=== PATIENT | male | born 1955 | race Caucasian/White ===

== ENCOUNTER 2016-10-21 05:09 | Emergency (ER) | payer SELFPAY ==
[~2016-10-21] VITALS: Ht 167.6 cm; Wt 75.9 kg
[~2016-10-21 05:09] MED LIST: GLUCOPHAGE500 MG/TAB PO; METFORMIN500 MG PO
[2016-10-21 05:13] VITALS: TEMP 98.7
[2016-10-21] MEDS ORDERED: NORCO 325 MG-51 TAB PO (06:22)
[2016-10-21 06:33] VITALS: BP 152/90; PULSE 90
[2016-11-20] MEDS ORDERED: LEVEMIR100 U/ML SQ (15:45)
== END 2016-10-21 06:34 | disposition home or self-care (01) ==
LOC: COL.ER 05:09
DX: M25.512 Pain in left shoulder (principal); E11.9 Type 2 diabetes mellitus without complications; M19.90 Unspecified osteoarthritis, unspecified site; F17.210 Nicotine dependence, cigarettes, uncomplicated; W01.0XXA Fall on same level from slipping, tripping and stumbling without subsequent striking against object, initial encounter; Y92.009 Unspecified place in unspecified non-institutional (private) residence as the place of occurrence of the external cause

== ENCOUNTER 2016-12-14 13:42 | Emergency (ER) | payer SELFPAY ==
[~2016-12-14] VITALS: Ht 167.6 cm; Wt 75.0 kg
[~2016-12-14 13:42] MED LIST changes: +GLUCOPHAGE1000 MG PO; +LEVEMIR100 U/ML SQ; -METFORMIN500 MG PO; +NORCO 325 MG-51 TAB PO
[2016-12-14 13:43] VITALS: TEMP 96.8
[2016-12-14 14:24] LABS: VENOUS BLOOD GAS BE -0.1 (-4-4); VENOUS BLOOD GAS SAO2 80.7 % (60-80)
[2016-12-14 14:25] LABS: VENOUS BLOOD GAS SITE VENIPUNCTURE
[2016-12-14 14:41] LABS: BASO % 0.3 % (0.0-2.0); EOS # 0.1 (0.0-0.7); EOS % 1.5 % (0-4.0); GRAN # 3.6 (1.4-6.5); GRAN % 54.2 % (42.2-75.2); HEMATOCRIT 44.2 % (42.0-52.0); HEMOGLOBIN 15.6 g/dl (13.5-18.0); LYMPH # 2.5 (1.2-3.4); MEAN CELL VOLUME 82 fl (80.0-100.0); MEAN CORPUSCULAR HEMOGLOBIN 29 pg (27.0-31.0); MEAN CORPUSCULAR HGB CONC 35 g/dl (33.0-37.0); MEAN PLATELET VOLUME 10.6 fl (7.4-10.4); MONO # 0.4 (0.1-0.6); MONO % 6.6 % (1.7-9.3); PLATELET COUNT 160 K/mm3 (130-400); RED BLOOD COUNT 5.41 M/mm3 (4.20-5.60); WHITE BLOOD COUNT 6.7 K/mm3 (4.8-10.8)
[2016-12-14 14:43] LABS: ADJUSTED CALCIUM 9.5 mg/dL (8.4-10.2); ALANINE AMINOTRANSFERASE 19 U/L (21-72); ALBUMIN 3.9 gm/dL (3.5-5.0); ALKALINE PHOSPHATASE 82 U/L (50-136); ANION GAP 11 mmol/L (7-16); BILIRUBIN,TOTAL 0.8 mg/dL (0.0-1.0); BLOOD UREA NITROGEN 18 mg/dL (9-20); CALCIUM 9.4 mg/dL (8.4-10.2); CARBON DIOXIDE 23 mmol/L (22-30); CHLORIDE 95 mmol/L (98-107); CREATININE, serum 0.72 mg/dL (0.66-1.25); POTASSIUM 3.8 mmol/L (3.4-5.0); SODIUM 129 mmol/L (137-145); TOTAL PROTEIN 6.9 gm/dL (6.4-8.2)
[2016-12-14 14:49] LABS: GLUCOSE 444 mg/dL (74-106)
[2016-12-14 15:31] LABS: COLLECTION METHOD CLEAN CATCH
[2016-12-14 15:42] LABS: ACETONE,SERUM NEGATIVE
[2016-12-14 16:03] LABS: MUCOUS Present /lpf; PH 5 (5-8); SQUAMOUS EPITHELIAL None Seen /hpf; URINE APPEARANCE Clear; URINE BACTERIA None Seen /hpf; URINE BILIRUBIN Negative (NEGATIVE); URINE BLOOD Negative (NEGATIVE); URINE COLOR Straw; URINE GLUCOSE 3+ (NEGATIVE); URINE KETONE Negative (NEGATIVE); URINE LEUKOCYTE ESTERASE Negative (NEGATIVE); URINE PROTEIN(semi-quant) Negative (NEGATIVE); URINE RBC None Seen /hpf; URINE UROBILINOGEN Negative (NEGATIVE); URINE WBC 0-2 /hpf
[2016-12-14] MEDS ORDERED: DOXYCYCLINE 10100 MG PO (16:53)
[2016-12-14 17:00] VITALS: BP 134/79; PULSE 85
== END 2016-12-14 17:00 | disposition home or self-care (01) ==
LOC: COL.ER 13:42
PROVIDERS: Emergency Medicine
DX: E11.65 Type 2 diabetes mellitus with hyperglycemia (principal); R53.1 Weakness; Z79.4 Long term (current) use of insulin
CPT/HCPCS: J1815; J7030

== ENCOUNTER 2017-03-09 09:56 | Emergency (ER) | payer SELFPAY ==
[~2017-03-09] VITALS: Ht 167.6 cm; Wt 74.1 kg
[~2017-03-09 09:56] MED LIST changes: +DOXYCYCLINE 10100 MG PO
[2017-03-09] MEDS ORDERED: DOXYCYCLINE 10100 MG PO (11:56)
[2017-03-09] MEDS ORDERED: NORCO 325 MG-51 TAB PO (11:56)
[2017-03-09 12:52] VITALS: BP 105/75; PULSE 95; TEMP 97.5
== END 2017-03-09 12:54 | disposition home or self-care (01) ==
LOC: COL.ER 09:56
DX: L02.413 Cutaneous abscess of right upper limb (principal); E11.9 Type 2 diabetes mellitus without complications; F17.210 Nicotine dependence, cigarettes, uncomplicated; Z79.4 Long term (current) use of insulin

== ENCOUNTER 2017-03-19 20:22 | Emergency (ER) | payer SELFPAY ==
[~2017-03-19] VITALS: Ht 167.6 cm; Wt 74.1 kg
[2017-03-19 20:25] VITALS: BP 150/79; PULSE 90; TEMP 98
== END 2017-03-19 21:23 | disposition home or self-care (01) ==
LOC: COL.ER 20:22
DX: L02.413 Cutaneous abscess of right upper limb (principal); E11.9 Type 2 diabetes mellitus without complications; Z79.4 Long term (current) use of insulin

== ENCOUNTER 2017-04-11 10:42 | Emergency (ER) | payer SELFPAY ==
[~2017-04-11] VITALS: Ht 167.6 cm; Wt 74.1 kg
[2017-04-11 10:49] VITALS: BP 113/70; TEMP 97.9
[2017-04-11] MEDS ORDERED: NORCO 325 MG-51 TAB PO (15:02)
[2017-04-11] MEDS ORDERED: BACTRIM DS 8001 TAB PO (15:02)
[2017-04-11 15:12] VITALS: PULSE 87
[2017-04-13] MEDS ORDERED: CLEOCIN HC150 MG/CAP PO (18:48)
== END 2017-04-11 15:14 | disposition home or self-care (01) ==
LOC: COL.ER 10:42
DX: L02.413 Cutaneous abscess of right upper limb (principal); E11.9 Type 2 diabetes mellitus without complications; F17.210 Nicotine dependence, cigarettes, uncomplicated; Z79.4 Long term (current) use of insulin

== ENCOUNTER 2017-05-01 23:29 | Emergency (ER) | payer SELFPAY ==
[~2017-05-01] VITALS: Ht 167.6 cm; Wt 72.7 kg
[~2017-05-01 23:29] MED LIST changes: +BACTRIM DS 8001 TAB PO; +CLEOCIN HC150 MG/CAP PO
[2017-05-01 23:32] VITALS: TEMP 97
[2017-05-02 00:08] LABS: BASO % 0.4 % (0.0-2.0); EOS # 0.1 (0.0-0.7); GRAN # 5.3 (1.4-6.5); GRAN % 67.6 % (42.2-75.2); HEMOGLOBIN 12.7 g/dl (13.5-18.0); LYMPH % 25.7 % (20.0-51.0); MEAN CELL VOLUME 82 fl (80.0-100.0); MEAN CORPUSCULAR HEMOGLOBIN 28 pg (27.0-31.0); MEAN CORPUSCULAR HGB CONC 34 g/dl (33.0-37.0); MEAN PLATELET VOLUME 10.1 fl (7.4-10.4); MONO # 0.4 (0.1-0.6); MONO % 4.7 % (1.7-9.3); PLATELET COUNT 220 K/mm3 (130-400); RED BLOOD COUNT 4.51 M/mm3 (4.20-5.60); REDCELL DISTRIBUTION WIDTH-CV 13.6 % (11.5-14.5)
[2017-05-02 00:12] LABS: HEMATOCRIT 36.9 % (42.0-52.0)
[2017-05-02 00:20] LABS: ALBUMIN 3.4 gm/dL (3.5-5.0); BILIRUBIN,TOTAL 0.3 mg/dL (0.0-1.0); CALCIUM 8.8 mg/dL (8.4-10.2); CREATININE, serum 0.73 mg/dL (0.66-1.25); POTASSIUM 3.1 mmol/L (3.4-5.0); TOTAL PROTEIN 6.7 gm/dL (6.4-8.2)
[2017-05-02 00:35] LABS: C-REACTIVE PROTEIN 15.6 mg/dL (0.0-0.9)
[2017-05-02] MEDS ORDERED: ZITHROMAX Z PA250 MG PO (00:47)
[2017-05-02] MEDS ORDERED: TAMIFLU 75MG75 MG PO (00:47)
[2017-05-02 01:19] VITALS: BP 141/84; PULSE 69
== END 2017-05-02 01:20 | disposition home or self-care (01) ==
LOC: COL.ER 23:29
PROVIDERS: Family Medicine
DX: J11.1 Influenza due to unidentified influenza virus with other respiratory manifestations (principal); J20.9 Acute bronchitis, unspecified; H66.92 Otitis media, unspecified, left ear; E11.9 Type 2 diabetes mellitus without complications; F17.210 Nicotine dependence, cigarettes, uncomplicated; Z79.4 Long term (current) use of insulin
CPT/HCPCS: J0696; J1885; J7030

== ENCOUNTER 2017-08-13 17:20 | Emergency (ER) | payer SELFPAY ==
[~2017-08-13] VITALS: Ht 167.6 cm; Wt 71.8 kg
[~2017-08-13 17:20] MED LIST changes: +TAMIFLU 75MG75 MG PO; +ZITHROMAX Z PA250 MG PO
[2017-08-13 17:23] VITALS: TEMP 98
[2017-08-13 17:54] LABS: BASO % 0.6 % (0.0-2.0); EOS # 0.1 (0.0-0.7); EOS % 0.8 % (0-4.0); GRAN # 3.9 (1.4-6.5); GRAN % 55.1 % (42.2-75.2); HEMATOCRIT 38.4 % (42.0-52.0); HEMOGLOBIN 13.9 g/dl (13.5-18.0); LYMPH # 2.4 (1.2-3.4); LYMPH % 32.9 % (20.0-51.0); MEAN CELL VOLUME 82 fl (80.0-100.0); MEAN CORPUSCULAR HEMOGLOBIN 30 pg (27.0-31.0); MEAN CORPUSCULAR HGB CONC 36 g/dl (33.0-37.0); MONO # 0.7 (0.1-0.6); MONO % 10.2 % (1.7-9.3); PLATELET COUNT 205 K/mm3 (130-400); RED BLOOD COUNT 4.71 M/mm3 (4.20-5.60); REDCELL DISTRIBUTION WIDTH-CV 13.6 % (11.5-14.5)
[2017-08-13 18:10] LABS: ALBUMIN 3.5 gm/dL (3.5-5.0); BILIRUBIN,TOTAL 0.8 mg/dL (0.0-1.0); CALCIUM 9.3 mg/dL (8.4-10.2); CREATININE, serum 0.91 mg/dL (0.66-1.25); POTASSIUM 3.6 mmol/L (3.4-5.0); TOTAL PROTEIN 7.2 gm/dL (6.4-8.2)
[2017-08-13 20:19] LABS: COLLECTION METHOD CLEAN CATCH
[2017-08-13 20:25] LABS: PH 6 (5-8); SQUAMOUS EPITHELIAL None Seen /hpf; URINE APPEARANCE Clear; URINE BACTERIA None Seen /hpf; URINE BILIRUBIN Negative (NEGATIVE); URINE BLOOD Negative (NEGATIVE); URINE COLOR Yellow; URINE GLUCOSE 3+ (NEGATIVE); URINE KETONE Negative (NEGATIVE); URINE LEUKOCYTE ESTERASE Negative (NEGATIVE); URINE NITRATE Negative (NEGATIVE); URINE PROTEIN(semi-quant) Negative (NEGATIVE); URINE RBC None Seen /hpf; URINE UROBILINOGEN >=4.0 mg/dL (NEGATIVE)
[2017-08-13 20:44] VITALS: BP 112/58; PULSE 87
== END 2017-08-13 21:00 | disposition home or self-care (01) ==
LOC: COL.ER 17:20
PROVIDERS: Emergency Medicine
DX: I80.02 Phlebitis and thrombophlebitis of superficial vessels of left lower extremity (principal); E11.9 Type 2 diabetes mellitus without complications; Z79.4 Long term (current) use of insulin
CPT/HCPCS: J1815; J7030

== ENCOUNTER 2017-08-18 13:13 | Emergency (ER) | payer SELFPAY ==
[~2017-08-18] VITALS: Ht 167.6 cm; Wt 71.8 kg
[2017-08-18 13:19] VITALS: BP 146/50; PULSE 57; TEMP 98.3
== END 2017-08-18 15:00 | disposition home or self-care (01) ==
LOC: COL.ER 13:13
DX: I80.3 Phlebitis and thrombophlebitis of lower extremities, unspecified (principal); E11.9 Type 2 diabetes mellitus without complications; Z79.4 Long term (current) use of insulin; F17.210 Nicotine dependence, cigarettes, uncomplicated

== ENCOUNTER 2017-09-01 01:34 | Emergency (ER) | payer SELFPAY ==
[~2017-09-01] VITALS: Ht 167.6 cm; Wt 71.8 kg
[2017-09-01 01:38] VITALS: TEMP 98.6
[2017-09-01 02:03] LABS: BASO % 0.5 % (0.0-2.0); EOS # 0.1 (0.0-0.7); EOS % 1.1 % (0-4.0); GRAN # 5.7 (1.4-6.5); GRAN % 64.3 % (42.2-75.2); HEMOGLOBIN 12.7 g/dl (13.5-18.0); LYMPH # 2.2 (1.2-3.4); LYMPH % 24.7 % (20.0-51.0); MEAN CELL VOLUME 82 fl (80.0-100.0); MEAN CORPUSCULAR HEMOGLOBIN 30 pg (27.0-31.0); MEAN CORPUSCULAR HGB CONC 36 g/dl (33.0-37.0); MEAN PLATELET VOLUME 9.2 fl (7.4-10.4); MONO # 0.8 (0.1-0.6); MONO % 8.6 % (1.7-9.3); PLATELET COUNT 231 K/mm3 (130-400); RED BLOOD COUNT 4.26 M/mm3 (4.20-5.60); REDCELL DISTRIBUTION WIDTH-CV 13.6 % (11.5-14.5)
[2017-09-01 02:19] LABS: ALBUMIN 3.3 gm/dL (3.5-5.0); BILIRUBIN,TOTAL 0.7 mg/dL (0.0-1.0); C-REACTIVE PROTEIN 6.9 mg/dL (0.0-0.9); CALCIUM 9.1 mg/dL (8.4-10.2); CREATININE, serum 0.92 mg/dL (0.66-1.25); POTASSIUM 3.8 mmol/L (3.4-5.0); TOTAL PROTEIN 7.8 gm/dL (6.4-8.2)
[2017-09-01] MEDS ORDERED: NORCO 325 MG-51 TAB PO (02:51)
[2017-09-01] MEDS ORDERED: SEPTRA DS 8001 TAB PO (02:51)
[2017-09-01 03:06] VITALS: BP 144/85; PULSE 96
== END 2017-09-01 03:09 | disposition home or self-care (01) ==
LOC: COL.ER 01:34
PROVIDERS: Emergency Medicine
DX: L02.416 Cutaneous abscess of left lower limb (principal); E11.9 Type 2 diabetes mellitus without complications; Z79.4 Long term (current) use of insulin
CPT/HCPCS: J1170; J2405; J7030

== ENCOUNTER 2017-09-02 15:46 | Emergency (ER) | payer SELFPAY ==
[~2017-09-02] VITALS: Ht 167.6 cm; Wt 71.8 kg
[~2017-09-02 15:46] MED LIST changes: +SEPTRA DS 8001 TAB PO
[2017-09-02 15:51] VITALS: BP 112/69; TEMP 98.1
[2017-09-02 16:33] VITALS: PULSE 85
== END 2017-09-02 16:34 | disposition home or self-care (01) ==
LOC: COL.ER 15:46
DX: L02.416 Cutaneous abscess of left lower limb (principal); E11.9 Type 2 diabetes mellitus without complications; J44.9 Chronic obstructive pulmonary disease, unspecified; F17.210 Nicotine dependence, cigarettes, uncomplicated; F12.90 Cannabis use, unspecified, uncomplicated; Z79.4 Long term (current) use of insulin

== ENCOUNTER 2017-09-04 10:35 | Emergency (ER) | payer SELFPAY ==
[~2017-09-04] VITALS: Ht 167.6 cm; Wt 71.8 kg
[2017-09-04] MEDS ORDERED: NORCO 325 MG-51 TAB PO (11:22)
[2017-09-04 11:54] VITALS: PULSE 86; TEMP 97.7
== END 2017-09-04 11:37 | disposition home or self-care (01) ==
LOC: COL.ER 10:35
DX: L02.416 Cutaneous abscess of left lower limb (principal); F17.210 Nicotine dependence, cigarettes, uncomplicated; L03.116 Cellulitis of left lower limb; Z79.4 Long term (current) use of insulin

== ENCOUNTER 2017-09-10 03:54 | Emergency (ER) | payer SELFPAY ==
[~2017-09-10] VITALS: Ht 180.3 cm; Wt 71.8 kg
[2017-09-10 03:56] VITALS: TEMP 98.5
[2017-09-10 04:52] LABS: BASO % 0.2 % (0.0-2.0); EOS % 0.2 % (0-4.0); GRAN # 7.4 (1.4-6.5); GRAN % 69.8 % (42.2-75.2); HEMOGLOBIN 12.5 g/dl (13.5-18.0); LYMPH # 2.1 (1.2-3.4); LYMPH % 19.7 % (20.0-51.0); MEAN CELL VOLUME 81 fl (80.0-100.0); MEAN CORPUSCULAR HEMOGLOBIN 29 pg (27.0-31.0); MEAN CORPUSCULAR HGB CONC 36 g/dl (33.0-37.0); MEAN PLATELET VOLUME 9.7 fl (7.4-10.4); MONO % 9.6 % (1.7-9.3); PLATELET COUNT 225 K/mm3 (130-400); RED BLOOD COUNT 4.33 M/mm3 (4.20-5.60); REDCELL DISTRIBUTION WIDTH-CV 13.6 % (11.5-14.5)
[2017-09-10 04:56] LABS: HEMATOCRIT 35.1 % (42.0-52.0)
[2017-09-10 05:05] LABS: ALBUMIN 3.6 gm/dL (3.5-5.0); BILIRUBIN,TOTAL 0.7 mg/dL (0.0-1.0); C-REACTIVE PROTEIN 5.9 mg/dL (0.0-0.9); CALCIUM 10.3 mg/dL (8.4-10.2); CREATININE, serum 1.16 mg/dL (0.66-1.25); POTASSIUM 4.1 mmol/L (3.4-5.0); TOTAL PROTEIN 7.4 gm/dL (6.4-8.2)
[2017-09-10] MEDS ORDERED: NORCO 325 MG-51 TAB PO (06:05)
[2017-09-10] MEDS ORDERED: BACTRIM DS 8001 TAB PO (06:05)
[2017-09-10 06:22] VITALS: BP 128/81; PULSE 84
== END 2017-09-10 06:37 | disposition home or self-care (01) ==
LOC: COL.ER 03:54
PROVIDERS: Emergency Medicine
DX: L02.416 Cutaneous abscess of left lower limb (principal); L03.116 Cellulitis of left lower limb; E11.9 Type 2 diabetes mellitus without complications; F17.210 Nicotine dependence, cigarettes, uncomplicated; Z79.4 Long term (current) use of insulin
CPT/HCPCS: J3010

== ENCOUNTER 2017-09-16 12:30 | Inpatient (IN) | payer OTHER ==
[~2017-09-16] VITALS: Ht 167.6 cm; Wt 69.5 kg
[2017-09-16] VITALS (171 sets, daily range): BP systolic 103–107; BP diastolic 53–70; PULSE 68–80; TEMP 97.4–98.1; O2SAT 69–100
[2017-09-16 13:05] LABS: BASO # 0.1 (0.0-0.2); BASO % 0.5 % (0.0-2.0); EOS # 0.1 (0.0-0.7); EOS % 0.7 % (0-4.0); HEMOGLOBIN 12.3 g/dl (13.5-18.0); LYMPH # 2.5 (1.2-3.4); LYMPH % 22.1 % (20.0-51.0); MEAN CELL VOLUME 83 fl (80.0-100.0); MEAN CORPUSCULAR HEMOGLOBIN 29 pg (27.0-31.0); MEAN CORPUSCULAR HGB CONC 35 g/dl (33.0-37.0); MONO # 0.7 (0.1-0.6); PLATELET COUNT 194 K/mm3 (130-400); RED BLOOD COUNT 4.29 M/mm3 (4.20-5.60)
[2017-09-16 13:06] LABS: HEMATOCRIT 35.4 % (42.0-52.0)
[2017-09-16 13:53] LABS: LIPASE 46 U/L (23-300)
[2017-09-16 14:07] LABS: TROPONIN-I < 0.012 ng/mL (0.000-0.034)
[2017-09-16 14:44] LABS: COLLECTION METHOD CLEAN CATCH
[2017-09-16 14:49] LABS: ALBUMIN 3.3 gm/dL (3.5-5.0); BILIRUBIN,TOTAL 0.4 mg/dL (0.0-1.0); CALCIUM 8.3 mg/dL (8.4-10.2); CREATININE, serum 2.32 mg/dL (0.66-1.25); POTASSIUM 4.2 mmol/L (3.4-5.0); TOTAL PROTEIN 6.6 gm/dL (6.4-8.2)
[2017-09-16 14:59] LABS: MUCOUS Present /lpf; PH 5 (5-8); SQUAMOUS EPITHELIAL None Seen /hpf; URINE APPEARANCE Clear; URINE BACTERIA Rare /hpf; URINE BILIRUBIN Negative (NEGATIVE); URINE BLOOD Negative (NEGATIVE); URINE COLOR Yellow; URINE GLUCOSE 1+ (NEGATIVE); URINE KETONE Negative (NEGATIVE); URINE LEUKOCYTE ESTERASE Negative (NEGATIVE); URINE NITRATE Negative (NEGATIVE); URINE PROTEIN(semi-quant) Negative (NEGATIVE); URINE RBC 0-2 /hpf; URINE UROBILINOGEN Negative (NEGATIVE)
[2017-09-17] VITALS (546 sets, daily range): BP systolic 105–174; BP diastolic 59–92; PULSE 65–84; TEMP 97.5–98.6; O2SAT 67–100
[2017-09-17 05:23] LABS: BASO % 0.4 % (0.0-2.0); EOS # 0.1 (0.0-0.7); EOS % 0.8 % (0-4.0); GRAN # 4.5 (1.4-6.5); GRAN % 62.7 % (42.2-75.2); HEMOGLOBIN 10.6 g/dl (13.5-18.0); LYMPH # 2.1 (1.2-3.4); LYMPH % 28.9 % (20.0-51.0); MEAN CELL VOLUME 82 fl (80.0-100.0); MEAN CORPUSCULAR HEMOGLOBIN 29 pg (27.0-31.0); MEAN CORPUSCULAR HGB CONC 35 g/dl (33.0-37.0); MEAN PLATELET VOLUME 9.8 fl (7.4-10.4); MONO # 0.5 (0.1-0.6); MONO % 6.8 % (1.7-9.3); PLATELET COUNT 178 K/mm3 (130-400); REDCELL DISTRIBUTION WIDTH-CV 13.8 % (11.5-14.5)
[2017-09-17 05:30] LABS: HEMATOCRIT 30.5 % (42.0-52.0)
[2017-09-17 05:32] LABS: CREATININE, serum 1.24 mg/dL (0.66-1.25); POTASSIUM 4.1 mmol/L (3.4-5.0)
[2017-09-18] VITALS (7 sets, daily range): BP systolic 132–177; BP diastolic 70–94; PULSE 71–95; TEMP 98.1–99
[2017-09-18 06:44] LABS: BASO % 0.3 % (0.0-2.0); EOS # 0.1 (0.0-0.7); EOS % 1.2 % (0-4.0); GRAN % 53.2 % (42.2-75.2); HEMOGLOBIN 11.3 g/dl (13.5-18.0); LYMPH # 2.1 (1.2-3.4); LYMPH % 37.1 % (20.0-51.0); MEAN CELL VOLUME 82 fl (80.0-100.0); MEAN CORPUSCULAR HEMOGLOBIN 28 pg (27.0-31.0); MEAN CORPUSCULAR HGB CONC 35 g/dl (33.0-37.0); MEAN PLATELET VOLUME 9.6 fl (7.4-10.4); MONO # 0.5 (0.1-0.6); MONO % 7.9 % (1.7-9.3); PLATELET COUNT 175 K/mm3 (130-400); REDCELL DISTRIBUTION WIDTH-CV 13.7 % (11.5-14.5)
[2017-09-18 06:48] LABS: HEMATOCRIT 32.6 % (42.0-52.0)
[2017-09-18 06:56] LABS: CALCIUM 8.4 mg/dL (8.4-10.2); CREATININE, serum 0.77 mg/dL (0.66-1.25); POTASSIUM 3.5 mmol/L (3.4-5.0)
[2017-09-19] VITALS: BP 141/87; PULSE 71; TEMP 98.4
[2017-09-19 05:05] VITALS: BP 154/74; PULSE 83
[2017-09-19 07:32] VITALS: BP 151/94; PULSE 80; TEMP 98.2
[2017-09-19 08:12] LABS: BASO % 0.4 % (0.0-2.0); EOS % 0.4 % (0-4.0); GRAN # 3.2 (1.4-6.5); GRAN % 57.3 % (42.2-75.2); HEMATOCRIT 35.3 % (42.0-52.0); HEMOGLOBIN 12.3 g/dl (13.5-18.0); LYMPH % 35.9 % (20.0-51.0); MEAN CELL VOLUME 82 fl (80.0-100.0); MEAN CORPUSCULAR HEMOGLOBIN 29 pg (27.0-31.0); MEAN CORPUSCULAR HGB CONC 35 g/dl (33.0-37.0); MEAN PLATELET VOLUME 9.5 fl (7.4-10.4); MONO # 0.3 (0.1-0.6); MONO % 5.6 % (1.7-9.3); PLATELET COUNT 196 K/mm3 (130-400); RED BLOOD COUNT 4.29 M/mm3 (4.20-5.60); REDCELL DISTRIBUTION WIDTH-CV 13.8 % (11.5-14.5)
[2017-09-19 08:32] LABS: CREATININE, serum 0.89 mg/dL (0.66-1.25); MAGNESIUM 1.3 mg/dL (1.6-2.3); POTASSIUM 4.1 mmol/L (3.4-5.0)
[2017-09-19 11:38] VITALS: BP 162/85; PULSE 76; TEMP 98.2
[2017-09-19] MEDS ORDERED: ZOFRAN ODT4 MG PO (14:12)
[2017-09-19] MEDS ORDERED: NS INT FLUSH 1010 ML IV (14:13)
[2017-09-19] MEDS ORDERED: NORCO 325 MG-7.1 TAB PO (14:13)
[2017-09-19] MEDS ORDERED: VANCOCIN HCL1 GM IV (14:13)
[2017-09-19] MEDS ORDERED: MAG-OX 400400 MG/TAB PO (16:15)
[2017-09-19] MEDS ORDERED: LEVEMIR100 U/ML SQ (16:16)
[2017-09-19 17:15] VITALS: BP 95/72; PULSE 71; TEMP 98.4
[2017-09-19 20:02] VITALS: BP 74/48; PULSE 57; TEMP 97.9
[2017-09-20 00:28] VITALS: BP 71/52; PULSE 56; TEMP 97.9
[2017-09-20 01:10] VITALS: BP 95/50
[2017-09-20 03:42] VITALS: BP 110/66; PULSE 63; TEMP 99
[2017-09-20 06:35] LABS: BASO % 0.4 % (0.0-2.0); EOS # 0.1 (0.0-0.7); EOS % 1.5 % (0-4.0); GRAN % 41.9 % (42.2-75.2); LYMPH # 2.3 (1.2-3.4); LYMPH % 48.2 % (20.0-51.0); MEAN CELL VOLUME 84 fl (80.0-100.0); MEAN CORPUSCULAR HGB CONC 34 g/dl (33.0-37.0); MEAN PLATELET VOLUME 9.9 fl (7.4-10.4); MONO # 0.4 (0.1-0.6); MONO % 7.6 % (1.7-9.3); PLATELET COUNT 185 K/mm3 (130-400); RED BLOOD COUNT 3.58 M/mm3 (4.20-5.60)
[2017-09-20 06:37] LABS: HEMOGLOBIN 10.1 g/dl (13.5-18.0); MEAN CORPUSCULAR HEMOGLOBIN 28 pg (27.0-31.0)
[2017-09-20 06:52] LABS: CALCIUM 8.3 mg/dL (8.4-10.2); CREATININE, serum 1.21 mg/dL (0.66-1.25); MAGNESIUM 2.1 mg/dL (1.6-2.3); POTASSIUM 3.7 mmol/L (3.4-5.0)
[2017-09-20 07:59] VITALS: BP 155/90; PULSE 70; TEMP 97.9
[2017-09-20] MEDS ORDERED: OMNICEF 300MG300 MG PO (09:39)
== END 2017-09-20 11:21 | disposition home or self-care (01) | DRG 871 ==
LOC: COL.ER 12:30 → ICU 15:16 → MEDICAL 15:16
PROVIDERS: Emergency Medicine; Hospitalist; Nurse Practitioner Family
DX: A41.9 Sepsis, unspecified organism (principal); E43 Unspecified severe protein-calorie malnutrition; L02.416 Cutaneous abscess of left lower limb; N17.9 Acute kidney failure, unspecified; E87.2 Acidosis; E87.1 Hypo-osmolality and hyponatremia; E11.9 Type 2 diabetes mellitus without complications; I10 Essential (primary) hypertension; E83.42 Hypomagnesemia; B95.61 Methicillin susceptible Staphylococcus aureus infection as the cause of diseases classified elsewhere; J44.9 Chronic obstructive pulmonary disease, unspecified; Z91.14 Patient's other noncompliance with medication regimen; Z79.4 Long term (current) use of insulin; F17.210 Nicotine dependence, cigarettes, uncomplicated
CPT/HCPCS: 99223-AI; 99232-AI; 99239; J1644; J1815; J2405; J3370; J3475; J7030; J7050

== ENCOUNTER 2021-08-16 14:52 | Emergency (ER) | payer MEDICARE ==
[~2021-08-16] VITALS: Ht 167.6 cm; Wt 75.0 kg
[~2021-08-16 14:52] MED LIST changes: +MAG-OX 400400 MG/TAB PO; +NORCO 325 MG-7.1 TAB PO; +NS INT FLUSH 1010 ML IV; +OMNICEF 300MG300 MG PO; +VANCOCIN HCL1 GM IV; +ZOFRAN ODT4 MG PO
[2021-08-16 15:16] VITALS: BP 121/74; PULSE 60; TEMP 98.2
== END 2021-08-16 18:09 | disposition home or self-care (01) ==
LOC: COL.ER 14:52
DX: M54.2 Cervicalgia (principal); M25.512 Pain in left shoulder; M54.6 Pain in thoracic spine; F17.210 Nicotine dependence, cigarettes, uncomplicated; Z98.890 Other specified postprocedural states
CPT/HCPCS: J1885

== ENCOUNTER 2021-08-17 05:51 | Emergency (ER) | payer MEDICARE | END 2021-08-17 06:02 | disposition left against medical advice (07) | LOC: COL.ER 05:51 | DX: Z72.89 Other problems related to lifestyle (principal) ==

== ENCOUNTER 2021-08-18 11:21 | Emergency (ER) | payer MEDICARE ==
[~2021-08-18] VITALS: Ht 167.6 cm; Wt 75.0 kg
[2021-08-18 11:34] VITALS: BP 106/63; PULSE 99; TEMP 97.7
== END 2021-08-18 12:20 | disposition home or self-care (01) ==
LOC: COL.ER 11:21
DX: M25.511 Pain in right shoulder (principal); F11.93 Opioid use, unspecified with withdrawal; Z76.5 Malingerer [conscious simulation]
CPT/HCPCS: J8540

== ENCOUNTER 2021-10-30 08:23 | Emergency (ER) | payer MEDICARE ==
[~2021-10-30] VITALS: Ht 167.6 cm; Wt 75.0 kg
[2021-10-30 08:26] VITALS: TEMP 97.7
[2021-10-30 09:10] LABS: BASO % 0.1 % (0.0-2.0); EOS % 0.1 % (0.0-4.0); GRAN # 5.2 K/mm3 (1.4-6.5); GRAN % 72.2 % (42.2-75.2); HEMATOCRIT 45.2 % (42.0-52.0); HEMOGLOBIN 16.8 g/dl (13.5-18.0); LYMPH # 1.4 K/mm3 (1.2-3.4); MEAN CELL VOLUME 95 fl (80.0-100.0); MEAN CORPUSCULAR HEMOGLOBIN 35 pg (27-31); MEAN CORPUSCULAR HGB CONC 37 g/dl (33.0-37.0); MEAN PLATELET VOLUME 8.7 fl (7.4-10.4); MONO # 0.6 K/mm3 (0.1-0.6); MONO % 8.3 % (1.7-9.3); PLATELET COUNT 109 K/mm3 (130-400); RED BLOOD COUNT 4.75 M/mm3 (4.20-5.60); REDCELL DISTRIBUTION WIDTH-CV 14.7 % (11.5-14.5)
[2021-10-30 09:28] LABS: ALBUMIN 4.3 gm/dL (3.4-4.8); BILIRUBIN,TOTAL 1.6 mg/dL (0.2-1.2); CALCIUM 9.9 mg/dL (8.4-10.2); CREATININE, serum 1.12 mg/dL (0.72-1.25); POTASSIUM 3.6 mmol/L (3.5-4.5); TOTAL PROTEIN 8.7 gm/dL (6.2-8.1)
[2021-10-30 10:23] LABS: COLLECTION METHOD CLEAN CATCH
[2021-10-30 10:34] LABS: TRICYCLIC ANTIDEPRESS URINE NEGATIVE
[2021-10-30 10:50] LABS: MUCOUS Present (NOT PRESENT); SQUAMOUS EPITHELIAL None Seen /hpf (0-10); URINE BACTERIA None Seen /hpf (NONE SEEN); URINE RBC >50 /hpf (0-2)
[2021-10-30] MEDS ORDERED: ZOFRAN ODT4 MG PO (10:53)
[2021-10-30 10:57] LABS: URINE APPEARANCE Clear (CLEAR/HAZY); URINE COLOR Amber (YELLOW); URINE GLUCOSE 1+ (NEGATIVE); URINE PROTEIN(semi-quant) 2+ (NEGATIVE)
[2021-10-30 10:58] LABS: URINE BLOOD 2+ (NEGATIVE); URINE KETONE Negative (NEGATIVE); URINE NITRATE Negative (NEGATIVE)
[2021-10-30 11:08] VITALS: BP 173/84; PULSE 90
== END 2021-10-30 11:08 | disposition home or self-care (01) ==
LOC: COL.ER 08:23
PROVIDERS: Personal Emergency Response Attendant
DX: R11.2 Nausea with vomiting, unspecified (principal); E86.0 Dehydration
CPT/HCPCS: J2405; J7030

== ENCOUNTER 2021-10-30 16:27 | Emergency (ER) | payer MEDICARE | END 2021-10-30 17:20 | disposition left against medical advice (07) | LOC: COL.ER 16:27 | DX: K92.9 Disease of digestive system, unspecified (principal) ==